=== PATIENT | female | born 2000 | race Caucasian/White ===

== ENCOUNTER 2021-02-06 17:17 | Emergency (ER) | payer OTHER ==
[~2021-02-06] VITALS: Ht 160 cm; Wt 44.6 kg
--- NOTE | 2021-02-06 17:42 | NUR ---
ED MD AT BEDSIDE FOR EVAL. PT'S MOTHER AT BEDSIDE. CALL LIGHT W/IN REACH. PT INSTRUCTED ON USE, VERBALIZED UNDERSTANDING. CONTINUOUS SPO2 MONITORING IN PLACE. PT STABLE, DENIES FURTHER NEEDS AT THIS TIME.
--- NOTE | 2021-02-06 18:00 | NUR ---
Pt to imaging.
[2021-02-06 18:08] LABS: BASOPHILS % (AUTO) 1 % (0-1); EOSINOPHILS % (AUTO) 3 % (1-7); LYMPHOCYTES % (AUTO) 22 % (22-44); MEAN CORPUSCULAR HEMOGLOBIN 30.2 pg (27.0-34.8); MEAN CORPUSCULAR HGB CONC 34.3 g/dL (32.4-35.8); MEAN PLATELET VOLUME 8.1 fL (7.4-10.4); MONOCYTES % (AUTO) 7 % (2-9); NEUTROPHILS % (AUTO) 68 % (42-75); PLATELET COUNT 215 x10^3/uL (130-400); RED BLOOD COUNT 4.15 x10^6/uL (3.82-5.3); RED CELL DISTRIBUTION WIDTH 13.1 % (9.6-15.2)
[2021-02-06 18:20] LABS: ALBUMIN 3.5 g/dL (3.4-5.0); ANION GAP 6 mmol/L (5-15); CALCIUM 8.4 mg/dL (8.5-10.1); CHLORIDE 106 mmol/L (98-107); CREATININE 0.57 mg/dL (0.55-1.02)
--- NOTE | 2021-02-06 18:40 | NUR ---
BEDSIDE REPORT FROM TENISHA RN, PT CARE TRANSFERRED AT THIS TIME. PT RESTING ON GURNEY, NAD, APPEARS COMFORTABLE, BED IN LOWEST, RAILS ENGAGED, CALL LIGHT ON LAP, DENIES ADDITIONAL QUESTIONS OR NEEDS AT THIS TIME. MONITORING IN PLACE. WCTM.
[2021-02-06 18:54] LABS: MICROSCOPIC NOT IND
--- NOTE | 2021-02-06 19:47 | NUR ---
PT BACK FROM US AT THIS TIME. NAD, NO CHANGE IN CONDITION. Patient is resting comfortably in bed. Bed in lowest, rails engaged, call light on lap. Vital Signs within normal limits. WCTM.
[2021-02-06 20:09] VITALS: BP 102/64
--- NOTE | 2021-02-06 20:09 | NUR ---
Patient given discharge instructions and they have confirmed that they understand the instructions. Patient ambulatory with steady gait. NAD, all questions answered appropriately, denies additional needs at this time. No personal belongings left in room after discharge.
== END 2021-02-06 20:15 | disposition home or self-care (01) ==
LOC: ED 18:30
DX: O20.0 Threatened abortion (principal); R10.30 Lower abdominal pain, unspecified; M54.5 Low back pain; Z3A.01 Less than 8 weeks gestation of pregnancy
CPT/HCPCS: 36415; 76801; 80048; 81003; 82040; 84702; 85025; 99284

== ENCOUNTER 2021-02-08 14:42 | Emergency (ER) | payer OTHER ==
[~2021-02-08] VITALS: Ht 160 cm; Wt 45.5 kg
--- NOTE | 2021-02-08 15:23 | NUR ---
Pt c/o lower back pain mostly on L side, travels to lower abd. Pt reports scant bleeding intermittent since Tuesday. Pt states she's used 1 pad today.
[2021-02-08 16:38] VITALS: BP 90/56
== END 2021-02-08 16:40 | disposition home or self-care (01) ==
LOC: ED 16:34
DX: O03.9 Complete or unspecified spontaneous abortion without complication (principal)
CPT/HCPCS: 36415; 84702; 99283